=== PATIENT | female | born 1950 | race Caucasian/White ===

== ENCOUNTER 2019-01-11 09:04 | Observation (INO) | payer MEDICARE, OTHER ==
[~2019-01-11] VITALS: Ht 160 cm; Wt 54.0 kg
[2019-01-11] VITALS (10 sets, daily range): BP systolic 100–116; BP diastolic 55–74
[~2019-01-11 09:04] MED LIST: CRESTOR5 M1 PO
--- NOTE | 2019-01-11 09:04 | NUR ---
PT IMMEDIATELY TO ROOM PALE AND DIAPHORETIC WITH SLIGHT SOB
[2019-01-11] MEDS ORDERED: TIAZAC360 MG PO (09:23)
[2019-01-11] MEDS ORDERED: ASPIRIN81 MG PO (09:23)
[2019-01-11] MEDS ORDERED: ISOSORB MONO30 MG PO (09:24)
[2019-01-11] MEDS ORDERED: METOPROL TAR100 MG PO (09:24)
[2019-01-11] MEDS ORDERED: ELIQUIS5 MG PO (09:25)
--- NOTE | 2019-01-11 09:32 | NUR ---
PT MEDICATED ORDERED EDUCATED REGARDING MEDICATION INCLDUING REASON FOR ADMINISTRATION, EXPECTATIONS AND POSSIBLE SIDE EFFECTS, SPOUSE AT BEDSIDE, CALL AMISHA KIM.
[2019-01-11 09:59] LABS: HEMATOCRIT 47.2 % (37.0-47.0); HEMOGLOBIN 16.2 g/dl (12.0-16.0); IMMATURE GRANULOCYTES 0.4 % (0.0-5.0); MEAN CELL VOLUME 89.1 fL CALC (80.0-100.0); MEAN CORPUSCULAR HGB 30.6 pG CALC (26.0-32.0); MEAN CORPUSCULAR HGB CONC 34.3 g/L CALC (32.0-36.0); NEUT# 9.31 thou/uL (2.00-7.15); RED BLOOD COUNT 5.3 mill/uL (4.20-5.60); RED CELL DISTRI WIDTH 13.7 % (11.5-15.5)
--- NOTE | 2019-01-11 10:00 | NUR ---
US AT BEDSIDE FOR PORTABLE GALL BLADDER SCAN
--- NOTE | 2019-01-11 10:15 | NUR ---
CARDIZEM GTT INITIATED AT 10 MG /HR WILL MONITOR BP & TELE CLOSELY
[2019-01-11 10:17] LABS: INTERNATIONAL NORMALIZED RATIO 1.3 RATIO (0.7-1.3); PROTHROMBIN TIME 13.3 SECONDS (9.0-12.5)
[2019-01-11 10:24] LABS: ALBUMIN 4.4 g/dL (3.2-5.0); ANION GAP 17 (6-22 (CALC)); BUN 14 mg/dL (8-23); BUN/CREATININE RATIO 22 (12-20 (CALC)); CARBON DIOXIDE 23 mmol/l (22-30); CHLORIDE 97 mmol/l (95-108); CREATININE 0.7 mg/dL (0.5-1.0); GFR > 60 ML/MIN (>=60 (CALC)); GFR FOR AFR.AMER. > 60 ML/MIN (>=60 (CALC)); LIPASE 256 u/l (23-300); POTASSIUM 3.8 mmol/l (3.5-5.1); SGOT/AST 30 u/l (9-36); SODIUM 134 mmol/l (137-146); TOTAL PROTEIN 8.1 g/dL (6.3-8.2)
[2019-01-11 10:26] LABS: ALKALINE PHOSPHATASE 283 u/l (38-126); BILIRUBIN, TOTAL 1.3 mg/dL (0.0-1.4)
[2019-01-11] MEDS ORDERED: VALIUM2 MG PO (10:55)
--- NOTE | 2019-01-11 10:59 | NUR ---
HR CURRENTLY 87 BP 107/54, PT RESTING NO NEW COMPLAINTS OFFERED
--- NOTE | 2019-01-11 11:30 | NUR ---
CARDIZEM GTT TITRATED TO 5 MG, WILL MONITOR TOLERANCE
--- NOTE | 2019-01-11 11:58 | NUR ---
SBAR PRINTED TO FLOOR
--- NOTE | 2019-01-11 12:17 | NUR ---
PT TOLERATING DECREASED CARDIZEM RATE WITH HR MAINTAINED 70-90 RHYTHM REMAINS A FIB; BP STABLE, WILL CONTINUE TO MONITOR.
[2019-01-11] MEDS ORDERED: KAPSPARGO SPRIN25 MG PO (12:36)
--- NOTE | 2019-01-11 13:18 | NUR ---
REPORT CALLED TO ESPERANZA IN ICU BED 2 ASSIGNED
--- NOTE | 2019-01-11 13:18 | NUR ---
REPORT RECVD FROM MAX ARIAS
--- NOTE | 2019-01-11 13:36 | NUR ---
PT ARRIVED TO ICU2 BY STRETCHER WITH TELE. AMBULATED TO NEW BED WITH STEADY GAIT.
--- NOTE | 2019-01-11 13:40 | NUR ---
PT TRANSPORTED TO ICU ON TELE VIA STRECTHER WITH CARDIZEM GTT AT 5MG, VS STABLE , NURSE ESPERANZA AT BEDSIDE ON ARRIVAL.
--- NOTE | 2019-01-11 14:30 | NUR ---
PT GIVEN PRUNE JUICE x2 FOR CONSTIPATION.
--- NOTE | 2019-01-11 14:33 | NUR ---
PT CAME TO ER WITH C/O SOB & RUQ ABD PAIN. STATES WAS DX WITH UTI ON THURSDAY BUT HAS BEEN REAL SWEATY & TIRED SINCE STARTING BACTRIM. WAS AFIB RVR IN ER. HX OF HEART DISEASE & ARTHRITIS IN BOTH KNEES. NO HEARING AIDS. PARTIAL UPPER & LOWER DENTURES. SMOKES 1/2 PACK OF CIGARETES/DAY. 1-2 ALCOHOL BEVERAGES/DAY. NO RECREATIONAL DRUGS. LAST BM WAS THURSDAY BUT PT STATES SHE HAS NO APPETITE, BARELY EATING. HAS RASH UNDER BOTH BREAST & BRUISING TO EXTREMETIES. DENIES FALLS. LIVES AT HOME WITH SPOUSE, FEELS SAFE. DRIVES HERSELF. LUNGS CTA. ABD SOFT, TENDER TO RUQ. DENIES BACK PAIN AT THIS TIME. STRONG PULSES. NO EDEMA. GOOD CAP REFILL. NO NEURO DEFICEITS. DENIES SOB. DENIES COUGH. DENIES DIZZINESS. BELONGINGS INVENTORY COMPLETED.
--- NOTE | 2019-01-11 15:50 | NUR ---
PT APPEARS TO BE SLEEPING IN BED. NO S/S OF DISTRESS AT THIS TIME. WILL CONTINUE TO MONITOR & WATCH TELE CLOSELY.
--- NOTE | 2019-01-11 15:54 | NUR ---
ABRIL ORTIZ, @BEDSIDE WITH PT.
--- NOTE | 2019-01-11 16:45 | NUR ---
PT ASSISTED UP TO BSC. UA COLLECTED, SENT TO LAB.
[2019-01-11 16:56] LABS: URINE BLOOD DIPSTICK NEGATIVE (NEGATIVE); URINE COLOR YELLOW; URINE GLUCOSE - DIPSTICK NEGATIVE (NEGATIVE); URINE KETONE 15 mg/dL (NEGATIVE); URINE LEUK ESTERASE NEGATIVE (NEGATIVE); URINE NITRITE - DIPSTICK NEGATIVE (Negative); URINE PH 5.5 (4.5-8.0); URINE PROTEIN - DIPSTICK 30 mg/dL (NEG-TRACE); URINE SPECIFIC GRAVITY >=1.030
[2019-01-11 16:57] LABS: URINE BILIRUBIN - DIPSTICK NEGATIVE (NEGATIVE)
[2019-01-11 16:58] LABS: URINE RBC 0-2 RBC/hpf (0-5); URINE SQUAMOUS EPITHELIAL CELL FEW EPI/hpf (0-FEW); URINE WBC 0-2 WBC/hpf (0-5)
--- NOTE | 2019-01-11 17:10 | NUR ---
CALLED HOUSE SUP FOR IV ABX, NOT IN PYXIS
--- NOTE | 2019-01-11 17:47 | NUR ---
PT SITTING UP IN BED, EATING DINNER. CARDIZEM STOPPED.
--- NOTE | 2019-01-11 19:10 | NUR ---
awake. denies distress. 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 #20 [place] infusing @ 100cchr. po fluids taken well. voids small amts per bsc. fall precautions cont.
--- NOTE | 2019-01-11 22:00 | NUR ---
watching tv. no c/o voiced. nurse monitoring shows a fib hr 84.
[2019-01-12] VITALS (54 sets, daily range): BP systolic 64–155; BP diastolic 29–89
--- NOTE | 2019-01-12 00:30 | NUR ---
lab here. blood drawn.
--- NOTE | 2019-01-12 02:25 | NUR ---
president [place] shows a fib hr 121. bp 139/87. cardizem restarted.
--- NOTE | 2019-01-12 04:40 | NUR ---
lab here. blood drawn.
[2019-01-12 05:17] LABS: MEAN CELL VOLUME 89.9 fL CALC (80.0-100.0); MEAN CORPUSCULAR HGB 30.6 pG CALC (26.0-32.0); RED BLOOD COUNT 4.35 mill/uL (4.20-5.60); RED CELL DISTRI WIDTH 13.9 % (11.5-15.5)
[2019-01-12 05:26] LABS: HEMATOCRIT 39.1 % (37.0-47.0); HEMOGLOBIN 13.3 g/dl (12.0-16.0)
[2019-01-12 05:40] LABS: ALKALINE PHOSPHATASE 177 u/l (38-126); ANION GAP 11 (6-22 (CALC)); BILIRUBIN, TOTAL 0.8 mg/dL (0.0-1.4); BUN 7 mg/dL (8-23); BUN/CREATININE RATIO 18 (12-20 (CALC)); CARBON DIOXIDE 24 mmol/l (22-30); CHLORIDE 104 mmol/l (95-108); CREATININE 0.4 mg/dL (0.5-1.0); GFR > 60 ML/MIN (>=60 (CALC)); GFR FOR AFR.AMER. > 60 ML/MIN (>=60 (CALC)); POTASSIUM 3.5 mmol/l (3.5-5.1); SGOT/AST 20 u/l (9-36); SODIUM 135 mmol/l (137-146)
[2019-01-12 05:43] LABS: CHOLESTEROL HDL RATIO 6.1 (<4.4 (CALC)); MAGNESIUM 1.9 mg/dL (1.6-2.3)
[2019-01-12 05:45] LABS: ALBUMIN 2.9 g/dL (3.2-5.0); TOTAL PROTEIN 5.6 g/dL (6.3-8.2)
--- NOTE | 2019-01-12 06:00 | NUR ---
eyes closed. no distress. sales professional shows a fib hr 104.
--- NOTE | 2019-01-12 07:20 | NUR ---
recvd report from nichole conley at start fo shift.
--- NOTE | 2019-01-12 08:40 | NUR ---
DR BRUNER @BEDSIDE, DISCUSSING TEST RESULTS & POC; INCLUDING CARDIOLOGY & SURGICAL CONSULT.
[2019-01-12 08:46] LABS: AMYLASE 58 u/l (30-110); LIPASE 430 u/l (23-300)
--- NOTE | 2019-01-12 09:00 | NUR ---
PT REFUSED PAIN MEDICINE, STATING SHE DOESNT LIKE TO TAKE THEM.
[2019-01-12] MEDS ORDERED: QVAR REDIH40 MCG/ACT IN (09:12)
[2019-01-12] MEDS ORDERED: PROAIR HFA108 MCG/AC IN (09:13)
--- NOTE | 2019-01-12 10:05 | NUR ---
JOE REYNOLDS AT BEDSIDE AT THIS TIME
--- NOTE | 2019-01-12 10:33 | NUR ---
TITRATED CARDIZEM DRIP PER TITRATION CHARTING.
--- NOTE | 2019-01-12 11:30 | NUR ---
PT SITTING UP IN BED, EATING LUNCH.
--- NOTE | 2019-01-12 11:38 | NUR ---
MEDICAL RECORDS RECEIVED FROM DR REAVES PLACED ON CHART.
--- NOTE | 2019-01-12 12:00 | NUR ---
PT LAYING ON LEFT SIDE, APPEARS TO BE SLEEPING. NO S/S OF DISTRESS. CALLBELL W/IN REACH.
--- NOTE | 2019-01-12 12:33 | NUR ---
DR BRUNER NOTIFIED OF PTS BP OF 80/46. PT RESTING IN BED, ASYMPTOMATIC.
--- NOTE | 2019-01-12 12:52 | NUR ---
DR BRUNER NOTIFIED OF BP 64/29. BP TAKEN MANUALLY @ 100/60. BP CUFF CHANGED. AWAITING NEW ORDER FOR NACL BOLUS.
--- NOTE | 2019-01-12 12:52 | NUR ---
DR MCKINLEY @BEDSIDE FOR CONSULT.
--- NOTE | 2019-01-12 13:15 | NUR ---
500ML NACL CHANGED FROM KVO TO BOLUS. BP NOW 110/69, HR 80-90'S.
--- NOTE | 2019-01-12 13:24 | NUR ---
PTS O2 DROPPED TO 92-93%. PT FEELS LIKE SHES HAVING A HARD TIME BREATHING. PUT PT ON 2L NC. PT STATES "THATS BETTER". EMPTIED BSC.
--- NOTE | 2019-01-12 14:23 | NUR ---
PT RESTING IN BED, APPEARS TO BE SLEEPING. NO S/S OF DISTRESS AT THIS TIME. WILL CONTINUE TO MONITOR.
--- NOTE | 2019-01-12 15:55 | NUR ---
PT LAYING IN BED, DENIES NEEDS/WANTS AT THIS TIME.
--- NOTE | 2019-01-12 16:57 | NUR ---
PT UP IN ROOM, GIVING SELF BATH; BRUSHED TEETH. LINENS/GOWN CHANGED. PT IN AFIB 100-110'S WHILE UP. O2 94% ON RA, PT REQUEST 2L NC. DENIES DIZZINESS. CALLBELL W/IN REACH. WILL CONTINUE TO MONITOR.
--- NOTE | 2019-01-12 17:38 | NUR ---
PT SITTING UP IN BED, EATING DINNER.
--- NOTE | 2019-01-12 19:00 | NUR ---
PATIENT ALERT AND ORIENTED X4. ON 2 L/MIN NC, SATS GREATER THAN 95 %, BECOMES SOB WITH EXERTION, WAS ASSISTED STANDBY TO BSC, NO GAIT DISTURBACES NOTED. AFIB ON TELEMETRY, HR INCREASES WITH EXRETION TO 120'S- 130'S. HEAD TO TOE NURSING ASSESSMENT PERFORMED. LAC 20 G IV INTACT, NS AT 100 ML/HR INFUSING PROPERLY. AFEBRILE. POC FOR TONIGHT DISCUSSED. SELF REPOSITIONS. CALL LIGHT WITHIN REACH. COMPLAINS OF ABD PAIN RATES 5/10 ON RUQ RADIATES TO RIGHT SIDE OF BACK. WILL CONTINUE TO MONITOR.
--- NOTE | 2019-01-12 19:51 | NUR ---
CALLED AND SPOKE TO DR PERRY OF PATIENT'S [facility] POSTERIOR CRACKLES. SBAR GIVEN. NEW ORDERS RECEIVED.
--- NOTE | 2019-01-12 20:17 | NUR ---
RT IN ROOM. PATIENT AGREES TO HAVE CXR.
--- NOTE | 2019-01-12 20:46 | NUR ---
PATIENT AGREES TO TAKE TYLENOL FOR RUQ PAIN. ABLE TO TOLERATE HER BEDTIME MEDICATIONS. NO NEEDS AT THIS TIME. NO ACUTE DISTRESS NOTED. WILL CONTINUE TO MONITOR. CALL LIGHT WITHIN REACH.
--- NOTE | 2019-01-12 21:38 | NUR ---
CXR RESULTS BACK. "LUNGS ARE CLEAR BILATERALLY."
--- NOTE | 2019-01-12 21:39 | NUR ---
PATIENT RESTING ON HER LEFT SIDE. EYES ARE CLOSED. NO ACUTE DISTRESS SHOWN. ON 2L/MIN NC, SATS 97%. AFIB ON TELEMETRY. HR IS BETWEEN 90'S-109 BPM. CALL LIGHT WITHIN REACH. WILL CONTINUE TO MONITOR.
--- NOTE | 2019-01-12 22:46 | NUR ---
PATIENT REPOSITIONS SELF. HR IN THE 80'S. AFIB ON TELEMTRY. NO ACUTE DISTRESS SHOWN. NO COMPLAINTS. CALL LIGHT WITHIN REACH.
[2019-01-13] VITALS (16 sets, daily range): BP systolic 102–154; BP diastolic 55–86
--- NOTE | 2019-01-13 00:03 | NUR ---
PATIENT LAYING ON HER LEFT SIDE, AROUSES EASILY WITH VERBL STIMULI. NO COMPLAINTS. NO SOB NOTED. NO NEEDS AT THIS TIME. CALL LIGHT WITHIN REACH. WILL CONTINUE TO MONITOR.
--- NOTE | 2019-01-13 02:00 | NUR ---
PATIENT RESTING WITH EYES CLOSED. NO ACUTE DISTRESS SHOWN. AFIB, HR RANGES 60'S-90'S. CALL LIGHT WITHIN REACH. WILL CONTINUE TO MONIOTR.
--- NOTE | 2019-01-13 04:10 | NUR ---
PATIENT RESTIGN WITH EYES CLOSED. ON NC AT 2L/MIN, SATS 98 %. NO ACUTE DISTRES SSHOWN. AFIB ON TELEMETRY, HEART RATE IN THE 80'S. CALL LIGHT WITHIN REACH. AFEBRILE.
--- NOTE | 2019-01-13 05:58 | NUR ---
PATIENT LAYING SUPINE IN BED. AWAKE. ABLE TO HAVE BM THIS MORNING. NO ACUTE DISTRESS SHOWN. AFIB, HR 80'S TO 110'S THIS MORNING. NO COMPLAINTS. NO NEEDS AT THIS TIME. CALL LIGHT WITHIN REACH. WILL CONTINUE TO MONITOR.
--- NOTE | 2019-01-13 07:20 | NUR ---
LAB @BEDSIDE FOR AM DRAW.
[2019-01-13 07:32] LABS: HEMATOCRIT 39.7 % (37.0-47.0); HEMOGLOBIN 13.3 g/dl (12.0-16.0); IMMATURE GRANULOCYTES 0.4 % (0.0-5.0); MEAN CELL VOLUME 91.7 fL CALC (80.0-100.0); MEAN CORPUSCULAR HGB 30.7 pG CALC (26.0-32.0); MEAN CORPUSCULAR HGB CONC 33.5 g/L CALC (32.0-36.0); NEUT# 6.23 thou/uL (2.00-7.15); RED BLOOD COUNT 4.33 mill/uL (4.20-5.60)
--- NOTE | 2019-01-13 07:32 | NUR ---
PT SITTING UP IN BED, EATING BREAKFAST. C/O MILD PAIN TO RUQ ABD PAIN THAT RADIATES TO RIGHT BACK.
[2019-01-13 08:33] LABS: ALBUMIN 3.3 g/dL (3.2-5.0); ALKALINE PHOSPHATASE 169 u/l (38-126); ANION GAP 9 (6-22 (CALC)); BUN 6 mg/dL (8-23); BUN/CREATININE RATIO 16 (12-20 (CALC)); CHLORIDE 102 mmol/l (95-108); CREATININE 0.4 mg/dL (0.5-1.0); GFR > 60 ML/MIN (>=60 (CALC)); GFR FOR AFR.AMER. > 60 ML/MIN (>=60 (CALC)); POTASSIUM 3.2 mmol/l (3.5-5.1); SGOT/AST 23 u/l (9-36); SODIUM 137 mmol/l (137-146); TOTAL PROTEIN 6.2 g/dL (6.3-8.2)
[2019-01-13 08:45] LABS: CARBON DIOXIDE 29 mmol/l (22-30)
--- NOTE | 2019-01-13 08:54 | NUR ---
PT UPDATED ON TEST RESULTS. AM MEDICATIONS GIVEN, EDUCATED ON MEDICATION & INDICATION. STATES TYLENOL OFFERED RELEIF OF PAIN.
--- NOTE | 2019-01-13 09:03 | NUR ---
DR BRUNER @BEDSIDE, DISCUSSING TEST RESULTS & POC; ANSWERED PTS QUESTIONS.
--- NOTE | 2019-01-13 09:12 | NUR ---
DR BRUNER LOOKING OVER MEDICAL RECORDS FROM OLD SHOE WORKER
--- NOTE | 2019-01-13 09:59 | NUR ---
RECLINER BROUGHT TO ROOM FOR PT. PT AMBULATED TO RECLINER. BSC MOVED NEXT TO CHAIR. PT GIVEN FRESH ICE WATER. NO OTHER NEEDS/WANTS AT THIS TIME. PT GIVEN EDUCATION ON MEDICATIONS PRINTED OUT FROM CHART.
--- NOTE | 2019-01-13 12:11 | NUR ---
PT STILL UP IN RECLINER, COMPLETED SELF BATH & ORAL CARE. LINENS CHANGED.
--- NOTE | 2019-01-13 12:30 | NUR ---
PT OUT OF BREATH AFTER TRANSFERING FROM RECLINER BACK TO BED. PT HR INCREASED WELL.
--- NOTE | 2019-01-13 13:00 | NUR ---
OBSERVABLE BRUISING TO #20 LAC IV SITE. OFFERED TO DC & REPLACE IV- OT REFUSED CHOOSING TO KEEP WORKING SITE. WILL LET US KNOW IF SHE WANTS IT CHANGED BEFORE CHANGE DATE.
--- NOTE | 2019-01-13 13:34 | NUR ---
DR MCKINLEY @BEDSIDE WITH PT.
--- NOTE | 2019-01-13 14:20 | NUR ---
PT RESTING IN BED, TV ON, NO S/S OF DISTRESS AT THIS TIME. VSS. WILL CONTINUE TO MONITOR.
--- NOTE | 2019-01-13 14:54 | NUR ---
PT OVERHEARD ON PERSONAL CELL PHONE, LAUGHING/PLAYFUL.
--- NOTE | 2019-01-13 18:10 | NUR ---
PT MEDICATED WITH LASIX IV. PURE WICK PLACED & PT EDUCATED, SUCTION ON CONTINUOUS MEDIUM, TO CANISTER.
--- NOTE | 2019-01-13 19:20 | NUR ---
PATIENT LAYING NEARLY 90 DEGREES IN BED. ON 2L/MIN NC, SATS GREATER THAN 95%. NO SOB NOTED. NO ACUTE DISTRESS NOTED. HAS RUG ABD PAIN RATES 3/10, AGREES TO LET ME KNOW IF SHE NEEDS TYLENOL. HEAD TO TOE NURSING ASSESSMENT PERFORMED. LAC 20 G IV INTACT, SALINE LOCKED. PUREWIK INTACT AND HAS MODERATE SUCTIONING. HAD 1300ML, YELLOW URINE WITH SEDIMENT. POC FOR TONIGHT DISCUSSED. AFEBRILE. AFIB ON TELMETRY, HR RATE BETWEEN 110'S-130'S. SELF REPOSITIONS. WILL CONTINUE TO MONITOR. CALL LIGHT WITHIN REACH.
--- NOTE | 2019-01-13 20:28 | NUR ---
PATIENT ABLE TO TOLERATE HER BEDTIME MEDICATIONS. NO COMPLAINTS. WATCHES TV. NO ACUTE DISTRESS SHOWN. CALL LIGHT WITHIN REACH. WILL CONTINUE TO MONITOR.
--- NOTE | 2019-01-13 22:47 | NUR ---
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
--- NOTE | 2019-01-13 22:51 | NUR ---
patient laying on her right side, shows no acute distress. purewik intact, has filled another suction container, 1200ml, yellow and cler urine, no mal odor. on continuous moderate suction. call light within reach. afib on telemetry, hr between 90's- 110's. will continue to monitor.
[2019-01-14] VITALS (7 sets, daily range): BP systolic 99–145; BP diastolic 58–71
--- NOTE | 2019-01-14 00:10 | NUR ---
patient laying on her laft side. eyes closed. no acute distress shown. afib on telemetry, hr ranges in the 90's. on 2l/min nc. call light within reach. will continue to monitor.
--- NOTE | 2019-01-14 02:00 | NUR ---
PATIENT RESTING WITH EYES CLOSED. NO ACUTE DISTRES SHOWN. CALL LIGHT WITHIN REACH.
--- NOTE | 2019-01-14 04:00 | NUR ---
PATIENT SITTING UP 45 DEGREES IN BED, WATCHING TV. REPORTS SHE HAD SOME REST TONIGHT. NO ACUTE DISTRESS SHOWN. NO COMPLAINTS OF PAIN. PUREWIK INTACT. AFIB, HR 70'S-90'S. CALL LIGHT WITHIN REACH.
--- NOTE | 2019-01-14 06:16 | NUR ---
PATIENT LAYING WITH HOB 45 DEGREES. ON 2L/MIN NC. NO SOB NOTED. NO ACUTE DISTRES SSHOWN. PURE WIK INTACT, MODERATE SUCTIONING. NO COMPLAINTS. WATCHES TV. AFIB ON TELEMETRY, HR 84 BPM. CALL LIGHT WITHIN REACH. WILL CONTINUE TO MONITOR.
--- NOTE | 2019-01-14 06:19 | NUR ---
OXYGEN WEANED OFF TO ASSESS PATIENT'S 02 SATS ON ROOM AIR. PATIENT DOES NOT COMPLAIN OF SOB.
--- NOTE | 2019-01-14 06:27 | NUR ---
PATIENT DOES NOT COMPLAIN OF SOB, SATS 94%-96% ON ROOM AIR.
--- NOTE | 2019-01-14 07:00 | NUR ---
PT RESTING IN BED AWAKE. PT IS ALERT AND ORIENTED X3. SHIFT ASSESSMENT COMPLETED AT THIS TIME. IV PATENT X1. CALL LIGHT IN REACH. WILL CONTINUE TO MONITOR.
--- NOTE | 2019-01-14 07:30 | NUR ---
PT SET UP FOR AM MEAL
--- NOTE | 2019-01-14 08:21 | NUR ---
DR BRUNER AT BEDSIDE AT THIS TIME.
--- NOTE | 2019-01-14 08:33 | NUR ---
LAB AT BEDSIDE AT THIS TIME TO DRAW AM LABS
[2019-01-14 09:34] LABS: ANION GAP 10 (6-22 (CALC)); BUN 6 mg/dL (8-23); BUN/CREATININE RATIO 13 (12-20 (CALC)); CARBON DIOXIDE 32 mmol/l (22-30); CHLORIDE 95 mmol/l (95-108); CREATININE 0.4 mg/dL (0.5-1.0); GFR > 60 ML/MIN (>=60 (CALC)); GFR FOR AFR.AMER. > 60 ML/MIN (>=60 (CALC)); POTASSIUM 3.3 mmol/l (3.5-5.1); SODIUM 134 mmol/l (137-146)
--- NOTE | 2019-01-14 09:50 | NUR ---
DR BRUNER NOTIFED OF LAB RESULTS. NEW ORDERS RECEIVED.
[2019-01-14] MEDS ORDERED: KLOR-CON 1010 MEQ PO (11:19)
[2019-01-14] MEDS ORDERED: LANOXIN0.125 MG PO (11:19)
--- NOTE | 2019-01-14 12:15 | NUR ---
IV site discontinued, cath intact. No edema , no redness, voices no discomfort.
--- NOTE | 2019-01-14 13:00 | NUR ---
DISHCARGE INSTRUCTIONS REVIEWED WITH PATIENT. PATIENT VERBALIZED UNDERSTANDING.
--- NOTE | 2019-01-14 13:15 | NUR ---
Discharge instructions given. Patient verbalizes understanding of same. Discharged in stable condition via Wheelchair to Home with family. All belongings sent with pt.
== END 2019-01-14 13:15 | disposition home or self-care (01) ==
LOC: ED 09:04 → ED-I 11:01 → ED 11:37 → ICU 11:38
PROVIDERS: Family Medicine; ADMIT Internal Medicine; ATTEND Internal Medicine
DX: I48.2 Chronic atrial fibrillation (principal); R10.11 Right upper quadrant pain; I25.10 Atherosclerotic heart disease of native coronary artery without angina pectoris; I10 Essential (primary) hypertension; E11.9 Type 2 diabetes mellitus without complications; R74.8 Abnormal levels of other serum enzymes; N39.0 Urinary tract infection, site not specified; E78.5 Hyperlipidemia, unspecified; F41.9 Anxiety disorder, unspecified; F17.200 Nicotine dependence, unspecified, uncomplicated; Z79.01 Long term (current) use of anticoagulants
CPT/HCPCS: J3475; Q9967